=== PATIENT | male | born 1980 | race American Indian/Alaskan Native ===

== ENCOUNTER 2021-11-19 10:33 | Emergency (ER) | payer OTHER ==
[~2021-11-19] VITALS: Ht 177.8 cm; Wt 86.2 kg
[~2021-11-19 10:33] MED LIST: BACTRIM DS TAB1 EACH PO; CRUTCH1 EACH; HYDROCODON-ACE1 EA10 PO; IBUPROFEN800 MG PO; LEVAQUIN500 MG PO; NORCO 5-325 TA1 EACH PO; PERCOCET 5-3251 EACH PO; TYLENOL WITH C1 EACH PO
[2021-11-19] MEDS ORDERED: PENICILLIN V P500 MG PO (12:38)
[2021-11-19] MEDS ORDERED: HYDROCODON-ACE1 EA10 PO (12:38)
== END 2021-11-19 13:13 | disposition home or self-care (01) ==
LOC: ED 10:33
DX: S06.0X9A Concussion with loss of consciousness of unspecified duration, initial encounter (principal); S02.5XXA Fracture of tooth (traumatic), initial encounter for closed fracture; S16.1XXA Strain of muscle, fascia and tendon at neck level, initial encounter; F17.200 Nicotine dependence, unspecified, uncomplicated; W22.8XXA Striking against or struck by other objects, initial encounter; Y92.9 Unspecified place or not applicable
CPT/HCPCS: 70450; 72040; A9270

== ENCOUNTER 2022-06-30 17:46 | Emergency (ER) | payer OTHER ==
[~2022-06-30] VITALS: Ht 177.8 cm; Wt 86.2 kg
[~2022-06-30 17:46] MED LIST changes: +PENICILLIN V P500 MG PO
--- OUTSIDE RECORDS SUMMARY | 2022-06-30 17:51 | XMS ---
PreManage Notification: RICARDO RINCON Security Pastoral Assistant Events No recent Security Events currently on file [facility]ITER[facility] MET [facility] There are no care providers on record at this time. Jin has no Care Guidelines for this patient. Cynthia VISIT COUNT (12 MO.) 2 [facility] TOTAL 2 NOTE: Visits indicate total known visits. ED/C VISIT TRACKING (12 MO.) 06/30/2022 17:49 [facility] [place] TYPE: Emergency COMPLAINT: - HEAD INJ 11/19/2021 10:[address] [facility] [place] TYPE: Emergency COMPLAINT: - HEAD INJURY DIAGNOSES: - Concussion with loss of consciousness of unspecified duration, initial encounter - Nicotine dependence, unspecified, uncomplicated - Striking against or struck by other objects, initial encounter - Strain of muscle, fascia and tendon at neck level, initial encounter - Unspecified place or not applicable - Fracture of tooth (traumatic), initial encounter for closed fracture - Headache, unspecified INPATIENT VISIT TRACKING (12 MO.) No inpatient visits to display in this time frame [email or web address]
[2022-06-30] MEDS ORDERED: ONDANSETRON ODT8 MG PO (20:13)
[2022-06-30] MEDS ORDERED: HYDROCODON-ACE1 EA10 PO (20:13)
== END 2022-06-30 20:25 | disposition home or self-care (01) ==
LOC: ED 17:46
DX: S06.0X0A Concussion without loss of consciousness, initial encounter (principal); W20.8XXA Other cause of strike by thrown, projected or falling object, initial encounter; F17.200 Nicotine dependence, unspecified, uncomplicated
CPT/HCPCS: 70450; A9270; J2270